=== PATIENT | female | born 2000 | race Caucasian/White ===

== ENCOUNTER 2021-04-19 12:52 | Inpatient (IN) | payer OTHER ==
[~2021-04-19] VITALS: Ht 160 cm; Wt 69.9 kg
[~2021-04-19 12:52] MED LIST: PRENATAL VITAM1 EAC8 PO
[2021-04-19 16:34] LABS: HEMOGLOBIN 11.9 gm/dl (12.3-15.3); RED BLOOD COUNT 4.15 M/UL (4.00-5.10); WHITE BLOOD COUNT 16.6 K/UL (4.5-11.0)
[2021-04-20 06:09] LABS: HEMOGLOBIN 10.4 gm/dl (12.3-15.3)
[2021-04-20] MEDS ORDERED: DOCUSATE SODIU100 MG PO (09:08)
[2021-04-20] MEDS ORDERED: IBUPROFEN600 MG PO (09:08)
[2021-04-20] MEDS ORDERED: HYDROCODON-ACE1 EAC4 PO (09:08)
== END 2021-04-21 13:10 | disposition home or self-care (01) | DRG 807 ==
LOC: GENOP 12:52 → OB 16:21
PROVIDERS: ADMIT Obstetrics & Gynecology
PROC: 4A1HX4Z Monitoring of Products of Conception, Cardiac Electrical Activity, External Approach (ICD-10-PCS; principal; 2021-04-19)
PROC: 10E0XZZ Delivery of Products of Conception, External Approach (ICD-10-PCS; 2021-04-19)
PROC: 0KQM0ZZ Repair Perineum Muscle, Open Approach (ICD-10-PCS; 2021-04-19)
PROC: 10907ZC Drainage of Amniotic Fluid, Therapeutic from Products of Conception, Via Natural or Artificial Opening (ICD-10-PCS; 2021-04-19)
DX: O99.334 Smoking (tobacco) complicating childbirth (principal); Z37.0 Single live birth; F17.210 Nicotine dependence, cigarettes, uncomplicated; Z3A.39 39 weeks gestation of pregnancy; O70.1 Second degree perineal laceration during delivery; Z20.822 Contact with and (suspected) exposure to COVID-19
CPT/HCPCS: 36415; 81001; 82800; 85014; 85018; 85025; J2590; J2795; J3010; U0002

== ENCOUNTER 2022-03-22 01:07 | Inpatient (IN) | payer OTHER ==
[~2022-03-22] VITALS: Ht 160 cm; Wt 67.6 kg
[~2022-03-22 01:07] MED LIST changes: +DOCUSATE SODIU100 MG PO; +HYDROCODON-ACE1 EAC4 PO; +IBUPROFEN600 MG PO
[2022-03-22 04:47] LABS: HEMOGLOBIN 10.7 gm/dl (12.3-15.3); RED BLOOD COUNT 3.69 M/UL (4.00-5.10); WHITE BLOOD COUNT 12.2 K/UL (4.5-11.0)
[2022-03-22] MEDS ORDERED: HEMOCYTE324 MG PO ×2 (05:41→10:15)
[2022-03-22] MEDS ORDERED: NAPROXEN500 MG PO (05:41)
[2022-03-22] MEDS ORDERED: COLACE100 MG PO ×2 (05:41→10:15)
[2022-03-22] MEDS ORDERED: IBU600 MG PO (10:15)
[2022-03-23 03:47] LABS: HEMOGLOBIN 11.3 gm/dl (12.3-15.3)
== END 2022-03-23 21:50 | disposition home or self-care (01) | DRG 807 ==
LOC: GENOP 01:07 → OB 04:44
PROVIDERS: ADMIT Obstetrics & Gynecology
PROC: 10E0XZZ Delivery of Products of Conception, External Approach (ICD-10-PCS; principal; 2022-03-22)
PROC: 0HQ9XZZ Repair Perineum Skin, External Approach (ICD-10-PCS; 2022-03-22)
DX: O99.344 Other mental disorders complicating childbirth (principal); Z37.0 Single live birth; F41.9 Anxiety disorder, unspecified; O70.0 First degree perineal laceration during delivery; O69.81X0 Labor and delivery complicated by cord around neck, without compression, not applicable or unspecified; F32.A Depression, unspecified; Z3A.38 38 weeks gestation of pregnancy; Z28.310 Unvaccinated for COVID-19; Z82.49 Family history of ischemic heart disease and other diseases of the circulatory system; Z82.71 Family history of polycystic kidney
CPT/HCPCS: 81001; 83518; 85014; 85018; 85025; J2590; J7120